=== PATIENT | female | born 1940 | race Caucasian/White ===

== ENCOUNTER 2018-01-14 18:05 | Inpatient (IN) ==
[2018-01-14] MEDS ORDERED: Naloxone 0.4 MG/ML INJ IVP PRN (21:56)
--- NOTE | 2018-01-14 22:13 | Internal Med History&Physical ---
<Smith Chow - Last Filed: 01/14/18 23:29> Date of Encounter: 01/14/18 Time of Encounter: 22:06 Internal Medicine - H&P: HPI Chief complaint: sob Admitted From: Hospital to Hospital Transfer Plans for Post Hospital Care: Home History of present illness: Ms. Danielle is a 77 year old female with history of COPD (on 3L o2 at home), CHF, recently diagnosed lung cancer presented to [place] emergency department for shortness of breath 3 days that has progressively worsened to the point she had conversational dyspnea. Yesterday patient went to her PCP who prescribed her prednisone and azithromycin with doxycycline however her shortness of breath continued to worsen. Patient reports her shortness of breath worsens with lying flat and improves with sitting up. She has history of chronic cough which has not worsened and reports some sputum production which is normal for her. At [facility] ED patient was given DuoNeb's which improved her symptoms slightly but she continued to use accessory muscles to breathe. She underwent chest x-ray which showed pleural effusions and pulmonary edema and patient was started on BiPAP. Due to concern of worsening respiratory status patient was transferred to [place]. She denies wheezing, fever, chills, congestion, rhinorrhea, chest pain, abdominal pain, nausea, vomiting, diarrhea. She reports diaphoresis, lower extremity edema bilaterally. Patient was recently diagnosed with right upper lobe non-small cell lung cancer which she was supposed to start radiation treatment today. She reports a couple episodes of pneumonia in the past few months and has been treated with IV as well as by mouth antibiotics. Past Med Surg Social Fam HX - Past Medical History Medical history: cardiomyopathy, CHF, COPD, hyperlipidemia, hypertension Additional medical history: LEFT BBB. SVT. THYROID NODULE. HOME O2. Pneumonia, CA NODULE RT LUNG Psychiatric history: anxiety - Past Surgical History Surgical History: appendectomy, cataract Additional surgical history: Heart Cath September 2017 - Social History Smoking Status: Former smoker Smokeless Tobacco Status: No Alcohol use: none Drug use: none - Family History Mother Hx Family Cardiac Disorders: Yes (ME) Father Hx Family Cardiac Disorders: Yes (ME) Internal Medicine - H&P: Meds Tiotropium [Spiriva] 2 puff IH DAILY 02/15/15 [History] Aspirin [Adult Low Dose Aspirin EC] 81 mg PO 3XW 07/21/15 [History] Acetylcysteine [Nac] 600 mg PO BID 08/18/17 [History] Atorvastatin [Lipitor] 20 mg PO DAILY 08/18/17 [History] Ascorbic Acid [Vitamin C] 500 mg PO DAILY #30 tablet 08/27/17 [Rx] Ferrous Sulfate 325 mg PO DAILY #30 tablet 08/27/17 [Rx] Losartan Potassium [Cozaar] 50 mg PO DAILY #30 tab 08/27/17 [Rx] Budesonide/Formoterol 160/4.5 [Symbicort 160/4.5] 2 puff IH BIDR 10/27/17 [ History] Ondansetron ODT [Zofran ODT] 4 mg SL Q4H PRN tab.rapdis 11/01/17 [Rx] Azithromycin [Zithromax] 250 mg PO QMWF 365 Days tablet 11/08/17 [Rx] Digoxin [Lanoxin] 0.125 mg PO DAILY #30 tablet 11/08/17 [Rx] Metoprolol XL (24 HR) Succ [Toprol Xl] 25 mg PO DAILY #30 tab.er.24h 11/08/17 [ Rx] Acetaminophen [Tylenol Arthritis] 650 mg PO Q6H PRN 12/01/17 [History] Albuterol Sulfate [Ventolin Hfa] 2 puff IH Q4-6H PRN 12/01/17 [History] Buspirone HCl [Buspar] 5 mg PO BID 12/01/17 [History] Cetirizine HCl [Zyrtec] 10 mg PO DAILY 12/01/17 [History] Ipratropium [place] 2 spray NS BID 12/01/17 [History] Oxygen 1 each .ROUTE AD 12/01/17 [History] ALPRAZolam [Xanax 0.5 MG Tablet] 0.25 mg PO TID PRN 01/14/18 [History] Albuterol Neb [Proventil Neb] 2.5 mg IH Q4-6H PRN 01/14/18 [History] Bumetanide [Bumex] 0.5 mg PO DAILY 01/14/18 [History] Cefdinir [Omnicef] 300 mg PO BID 01/14/18 [History] Docusate [Colace] 100 mg PO BID PRN 01/14/18 [History] Doxycycline 100 mg PO BID 01/14/18 [History] GuaiFENesin/Dextromethorphan [Robitussin/Dm] 10 ml PO Q6HR PRN 01/14/18 [History ] Mirtazapine [Remeron] 15 mg PO DAILY 01/14/18 [History] PredniSONE [Deltasone] 40 mg PO DAILY 01/14/18 [History] 3 Allergy/AdvReac Type Severity Reaction Status Date / Time codeine Allergy Rash Verified 12/23/17 14:41 levofloxacin [From Levaquin] Allergy Joint Pain Verified 12/23/17 14:41 All Systems PM: A 10-system review of systems was performed and is negative for pertinent findings except as documented above in the HPI. Review of systems: Constitutional: Denies fever, chills. Reports diaphoresis HEENT: Denies headache, trauma, blurry vision, eye discharge, ear pain, ear discharge neck pain, sore throat, rhinorrhea Heart: Denies chest pain palpitations, reports LE edema Lungs: Reports shortness of breath, cough, sputum production Abdomen: Denies abdominal pain nausea vomiting diarrhea. Reports constipation MSK: Denies back pain, falls, joint pain Kidney: Denies dysuria, hematuria Skin: Denies rash, ulcers Neuro: Denies numbness and tingling Psych: denies axniety, depression - Constitutional Vitals: Temp Pulse Resp BP Pulse Ox 97.9 F 73 18 138/80 95 01/14/18 20:12 01/14/18 20:12 01/14/18 20:12 01/14/18 20:12 01/14/18 20:12 Exam: General: pleasant, moderate distress HEENT: Head atraumatic, normocephalic, EOMI, PERRL, absent ear discharge or trauma, oral exam not done due to patient being dependent on bipap Neck: nontender to palpation, absent lymphadenopathy, Cardiovascualr: Regular rate and rhythm with no murmur, gallops or rubs, 2+ pedal edema pedal edema, radial pulses 2 out of 4 Lungs: Clear to auscultation bilaterally, diffuse mild expiratory wheezing Abdomen: Soft nontender, nondistended positive bowel sounds, absent hepatomegaly Skin: warm and dry, absent rash, absent open wounds, and nodules MSK: absent clubbing, cyanosis, joints without swelling Neuro: Cranial nerves II through XII intact, UE and LE sensation equal bilaterally, UE and LEstrength 5/5, alert oriented 3, Psych: good insight and judgement, - Assessment and plan (1) Acute respiratory failure with hypoxia and hypercapnia Current Visit: Yes Status: Acute Assessment and plan: 76-year-old female presented with shortness of breath 3 days has progressively worsening She was found to have BNP of 1600, chest x-ray showed evidence of pulmonary vascular congestion and developing pleural effusions She required BiPAP support Patient has a history of COPD, diastolic CHF and is on 3 L oxygen at home. Patient shortness of breath improved considerably after Lasix and BiPAP This is less likely to have COPD exacerbation as patient has not had worsening cough, sputum production. Less likely pneumonia as patient is afebrile, denies sick contacts, and there is no evidence of consolidation on chest x-ray or lung exam. Patient has leukocytosis likely secondary to PCP giving prednisone yesterday. Last echocardiogram shows LVEF of 30% with severe left ventricular systolic dysfunction without pulmonary hypertension or right heart failure on 08/25/2017 Plan: Continue BiPAP, Lasix 20 mg IVP. (2) Non-small cell lung cancer Current Visit: Yes Status: Acute Assessment and plan: right upper lobe NSCLC duet o hx of emphysema was not biopsied due to fear of pneumothorax biopsy of lymphnodes negative for malignancy Patient was supposed to undergo radiation treatment today however this was deferred due to her admission to the hospital Follow-up with oncology outpatient. Qualifiers: Laterality: right Qualified Code(s): C34.91 - Malignant neoplasm of unspecified part of right bronchus or lung (3) COPD (chronic obstructive pulmonary disease) Current Visit: Yes Status: Chronic Assessment and plan: not in exacerbation continue home symbicort spiriva and albuterol inhaler Qualifiers: COPD type: emphysema Emphysema type: unspecified Qualified Code(s): J43.9 - Emphysema, unspecified (4) Leukocytosis Current Visit: Yes Status: Acute Assessment and plan: 2nd to recent prednisone use no signs of infection if patient develops fever, worseing respiratory distress will need to be evaluated for infectious etiology Qualifiers: Leukocytosis type: unspecified Qualified Code(s): D72.829 - Elevated white blood cell count, unspecified (5) Acute on chronic systolic (congestive) heart failure Current Visit: Yes Status: Acute Assessment and plan: continue bipap, strict I/Os, fernandez in place lasix plan as above. - Time Spent With Patient Total time spent is greater than 50% in coordination of care (as documented) at patient's floor/unit and/or counseling patient: <Osito Trujillo - Last Filed: 01/15/18 01:59> Date of Encounter: 01/15/18 Time of Encounter: 00:40 - Constitutional Constitutional: no chills, no fever(s), no night sweats - EENT Eyes: no change in vision Ears: no ear pain Nose, mouth and throat: no nasal congestion, no sinus pressure, no sore throat - Cardiovascular Cardiovascular ROS IM: dyspnea, dyspnea on exertion, edema, orthopnea, no chest pain - Respiratory Respiratory: cough, dyspnea, wheezing, no hemoptysis, no chest congestion, no excessive phlegm production, no change in phlegm color - Gastrointestinal Gastrointestinal: no abdominal pain, no diarrhea, no hematemesis, no hematochezia, no melena, no vomiting - Genitourinary Genitourinary: no dysuria, no hematuria - Musculoskeletal Musculoskeletal ROS IM: no atrophy, no back pain - Integumentary Integumentary IM: no rash, no jaundice - Neurological Neurological ROS: no dizziness, no focal weakness, no frequent falls, no headache(s) - Psychiatric Psychiatric: no anxiety, no depression - Endocrine Endocrine IM: no polydipsia, no polyuria - Constitutional Vitals: Temp Pulse Resp BP Pulse Ox 98.2 F 102 16 130/85 98 01/15/18 00:36 01/15/18 00:36 01/15/18 00:36 01/15/18 00:36 01/15/18 00:36 General appearance: Present: cooperative, mild distress, A&O X 3 - Eye Eye exam: Present: PERRL. Absent: scleral icterus - ENT ENT exam: Present: mucous membranes dry, normal exam - Neck Neck exam general surgery: Present: supple. Absent: tenderness, thyromegaly - Respiratory Respiratory exam: Present: accessory muscle use, prolonged expiratory phase, respiratory distress (mild to moderate), rhonchi, wheezes, tachypnea. Absent: chest wall tenderness, rales - Cardiovascular Cardiovascular exam: Present: distant heart sounds, +S1, +S2. Absent: diastolic murmur, systolic murmur - GI/Abdominal GI/Abdominal exam: Present: normal bowel sounds, soft. Absent: hepatomegaly, splenomegaly, tenderness - Extremities Exam Extremities exam: Present: full ROM, normal capillary refill, warm, radial pulses palpable and symmetrical. Absent: calf tenderness, joint swelling, tenderness - Back Exam Back exam: Absent: CVA tenderness (L), CVA tenderness (R) - Neurological Exam Neurological exam: Present: alert, CN II-XII intact, oriented X3, no focal deficits - Psychiatric Psychiatric exam: Present: normal affect, normal mood - Skin Skin exam: Present: dry, intact, warm Internal Med - H&P Results - Diagnostic Studies Chest x-ray Status: image reviewed by me (bilateral small pleural effusions; vascular congestion) - Assessment and plan (1) Non-small cell lung cancer Current Visit: Yes Status: Acute Qualifiers: Laterality: right Qualified Code(s): C34.91 - Malignant neoplasm of unspecified part of right bronchus or lung (2) COPD (chronic obstructive pulmonary disease) Current Visit: Yes Status: Chronic Qualifiers: COPD type: emphysema Emphysema type: unspecified Qualified Code(s): J43.9 - Emphysema, unspecified (3) Acute respiratory failure with hypoxia and hypercapnia Current Visit: Yes Status: Acute (4) Leukocytosis Current Visit: Yes Status: Acute Qualifiers: Leukocytosis type: unspecified Qualified Code(s): D72.829 - Elevated white blood cell count, unspecified (5) Acute on chronic systolic (congestive) heart failure Current Visit: Yes Status: Acute - Time Spent With Patient Total time spent is greater than 50% in coordination of care (as documented) at patient's floor/unit and/or counseling patient: - Attending Attestation I discussed the patient [place], past medical history, review of systems, lab data , and exam findings with Dr. Chow. I then saw and examined patient independently as well. She feels better now than when she presented to ER. However, she still short of breath and struggling to breathe with some tachypnea , pursed lip breathing at times, and conversational dyspnea. He did improve with BiPAP, but is currently off. I recommend using it tonight and then when necessary during the daytime. I reviewed her x-ray and agree with the findings of CHF findings as well as hyperinflation from her chronic COPD. Her white blood cell count is elevated, but she was started on prednisone yesterday. She does not give any symptoms of infectious disease history and I agree withholding antibiotics at this time. She did have blood cultures drawn at [facility]. If she does not improve and/or declines, I would then recommend starting antibiotics at that time. However, presently, I agree with conservative treatment. She denies any chest pain, vomiting, or diarrhea. Appetite and fluid intake have been diminished,. Other than my comments above and noted exam findings, I agree with Dr. Chow's assessment and plan.
[2018-01-14] MEDS: ALPRAZolam 0.5 MG TABLET PO PRN (22:43)
[2018-01-14] MEDS: *HR* Acetylcysteine 20% 600 MG/3 ML ORAL SYRINGE PO SCH (22:47)
[2018-01-15 05:29] LABS: Basophils % 0.1 %; Hematocrit 36.7 % (35.3-44.9); Immature Granulocytes % 0.2 % (0-4); Lymphocytes # 0.4 K/mcL (0.6-4.6); Lymphocytes % 4.9 %; Mean Corpuscular Hemoglobin 26.8 pg (28.0-33.3); Mean Corpuscular Volume 89.3 fL (83.0-100.0); Mean Platelet Volume 11.5 fL (9.4-12.4); Monocytes # 0.7 K/mcL (0.0-1.3); Monocytes % 8.4 %; Neutrophils # 7.6 K/mcL (1.6-8.9); Platelet Count 285 K/mcL (140-400); Red Blood Count 4.11 M/mcL (3.82-4.97); Red Cell Distribution Width 14.9 % (11.5-14.5); Segmented Neutrophils % 86.4 %
[2018-01-15] MEDS: *HR* Heparin 5,000 UNIT/ML VIAL SQ SCH ×3 (05:51→22:03)
[2018-01-15 05:53] LABS: BUN/Creatinine Ratio 34 (6-26); Blood Urea Nitrogen 25 mg/dL (8-23); Calcium 8.5 mg/dL (8.6-10.3); Carbon Dioxide 31 mEq/L (23-29); Chloride 102 mEq/L (98-107); Glucose 172 mg/dL (70-105); Osmolality,Calculated 298 (280-300); Potassium 3.9 mEq/L (3.5-5.1); Sodium 140 mEq/L (136-145); eGFR For Non-African Americans > 60 (> 60)
[2018-01-15] MEDS: Budesonide/Formoterol 160/4.5 1 PUFF INH IH SCH ×2 (07:33→19:57)
[2018-01-15] MEDS: Tiotropium 18 MCG inhalation IH SCH (07:33)
[2018-01-15] MEDS: Albuterol 2.5 MG/3 ML NEBULIZER IH PRN ×4 (07:33→19:57)
--- NOTE | 2018-01-15 08:24 | Internal Med Progress Note ---
<Liam Levi - Last Filed: 01/15/18 11:09> Hospitalist Progress Note - Encounter Date of Encounter: 01/15/18 Time of Encounter: 09:35 - Exam Vitals: Temp Pulse Resp BP Pulse Ox 98.2 F 87 21 155/93 90 01/15/18 08:10 01/15/18 08:10 01/15/18 08:10 01/15/18 08:10 01/15/18 08:10 - Assessment and Plan (1) Non-small cell lung cancer Current Visit: Yes Status: Acute (2) COPD (chronic obstructive pulmonary disease) Current Visit: Yes Status: Chronic (3) Acute respiratory failure with hypoxia and hypercapnia Current Visit: Yes Status: Acute (4) Leukocytosis Current Visit: Yes Status: Acute (5) Acute on chronic systolic (congestive) heart failure Current Visit: Yes Status: Acute - Time Spent with Patient Total time spent is greater than 50% in coordination of care (as documented) at patient's floor/unit and/or counseling patient: Internal Medicine: Result - Labs CBC & Chem 7: 01/15/18 04:45 01/15/18 04:45 Labs: Short CBC 01/15/18 Range/Units 04:45 WBC 8.8 D (4.3-11.1) K/mcL Hgb 11.0 L D (11.5-15.4) g/dL Hct 36.7 (35.3-44.9) % Plt Count 285 (140-400) K/mcL Neutrophils # 7.6 (1.6-8.9) K/mcL BMP 01/15/18 04:45 Sodium 140 Potassium 3.9 Chloride 102 Carbon Dioxide 31 H BUN 25 H Creatinine 0.74 Glucose 172 H Calcium 8.5 L Consult Discharge Plan - Plan Referrals: Nahum Dukes MD [Primary Care Provider] - - Attending Attestation I saw evaluated and examined this patient and my medical decision-making was reviewed with the Resident Physician, Yessenia Asencio. I agree with the documented findings, disposition and treatment plan as described except to any changes set forth below. We independently had gicq-or-rvef contact with the patient. Patient continues to report shortness of breath and is using accessory muscles. We will continue bronchodilators, Lasix and O2 supplementation. Recent echocardiogram done showed EF of 30%. Heart rate elevated likely due to bronchodilator use. If persistently elevated, will increase beta griselda dosage. <[place],Lacey N - Last Filed: 01/15/18 15:02> Hospitalist Progress Note - Encounter Date of Encounter: 01/15/18 Time of Encounter: 08:23 - Subjective Interval History: Ms. Danielle is a 77-year old female with a history of COPD, CHF, and recently diagnosed lung cancer. She presented to outside ED yesterday for progressively worsening SOB to the point where she is experiencing conversational dyspnea. Per hospitalist H&P, she was evaluated by her PCP yesterday and prescribed prednizone, azithromycin, and doxycycline; however, she continued to worsen, resulting in her presentation to the ED. Imaging studies performed at the outside facility demonstrated pleural effusions and pulmonary edema. She was transferred to [facility] due to concern for worsening respiratory status. Since her admission here, she has been receiving scheduled and PRN nebulizer treatments and BiPAP with some improvement in symptoms. On exam today, she continues to have shortness of breath, though she does report some improvement. She denies any chest pain or cough. Nursing staff denies any significant overnight events. She denies any new complaints or concerns at this time. - Exam Vitals: Temp Pulse Resp BP Pulse Ox 98.2 F 87 21 155/93 90 01/15/18 08:10 01/15/18 08:10 01/15/18 08:10 01/15/18 08:10 01/15/18 08:10 Exam: * General: Ill-appearing elderly female. She appears to be in mild distress secondary to dyspnea. She answers questions appropriately. * HEENT: Atraumatic and normocephalic. Nasal canula in place. * Cardiovascular: Regular rate and rhythm. S1 and S2 present. No murmurs, gallops, or rubs. * Respiratory: Expiratory wheeze present bilaterally. Patient is short of breath with minimal conversation. Accessory muscle use noted during respiration. * Abdomen: Soft and nontender. * Extremities: No clubbing or cyanosis. Minimal bilateral LE edema present. - Assessment and Plan (1) Acute respiratory failure with hypoxia and hypercapnia Current Visit: Yes Status: Acute Assessment and Plan: Patient presented with worsening SOB x 3days. She uses 5L supplemental oxygen at home, with an increased requirement of 8L when walking. She is currently receiving scheduled and PRN nebulizer treatments, with minimal improvement in symptoms. She appear short of breath very quickly after starting to converse. Plan to continue IV lasix and close record of I/Os and daily weights. Initial imaging demonstrated pleural effusions and pulmonary edema - will consider thoracentesis if patient does not improve or if effusion worsens. (2) Non-small cell lung cancer Current Visit: Yes Status: Acute Assessment and Plan: Patient was recently diagnosed with NSCLC, and was scheduled to undergo her first radiation treatment yesterday. Will recommend prompt followup with oncologist after discharge. (3) Acute on chronic systolic (congestive) heart failure Current Visit: Yes Status: Acute Assessment and Plan: Patient has a history of CHF and takes bumex at home. She is currently on furosemide 20mg IVP BID. Rodriguez catheter is in place. Plan for strict I/Os and daily weights. Will consider fluid restriction diet if patient does not demonstrate improvement overnight. DVT Prophylaxis: Heparin 5000units SQ Q8H. - Time Spent with Patient Total time spent is greater than 50% in coordination of care (as documented) at patient's floor/unit and/or counseling patient: Internal Medicine: Result - Labs CBC & Chem 7: 01/15/18 04:45 01/15/18 04:45 Labs: Short CBC 01/15/18 Range/Units 04:45 WBC 8.8 D (4.3-11.1) K/mcL Hgb 11.0 L D (11.5-15.4) g/dL Hct 36.7 (35.3-44.9) % Plt Count 285 (140-400) K/mcL Neutrophils # 7.6 (1.6-8.9) K/mcL BMP 01/15/18 04:45 Sodium 140 Potassium 3.9 Chloride 102 Carbon Dioxide 31 H BUN 25 H Creatinine 0.74 Glucose 172 H Calcium 8.5 L <GurmeetLiam - Last Filed: 01/15/18 11:09> (1) Non-small cell lung cancer Qualifiers: Laterality: right Qualified Code(s): C34.91 - Malignant neoplasm of unspecified part of right bronchus or lung (2) COPD (chronic obstructive pulmonary disease) Qualifiers: COPD type: emphysema Emphysema type: unspecified Qualified Code(s): J43.9 - Emphysema, unspecified (4) Leukocytosis Qualifiers: Leukocytosis type: unspecified Qualified Code(s): D72.829 - Elevated white blood cell count, unspecified <Yessenia Asencio - Last Filed: 01/15/18 15:02> (2) Non-small cell lung cancer Qualifiers: Laterality: right Qualified Code(s): C34.91 - Malignant neoplasm of unspecified part of right bronchus or lung
[2018-01-15] MEDS: Furosemide 20 MG/2 ML VIAL IVP SCH ×2 (08:25→16:46)
[2018-01-15] MEDS: Metoprolol XL (24 HR) Succ 25 MG TAB.ER.24H PO SCH (08:25)
[2018-01-15] MEDS: Mirtazapine 15 MG TABLET PO SCH (08:26)
[2018-01-15] MEDS: *HR* Digoxin 0.125 MG TABLET PO SCH (08:26)
[2018-01-15] MEDS: ALPRAZolam 0.5 MG TABLET PO PRN ×3 (08:34→22:04)
[2018-01-15] MEDS: *HR* Acetylcysteine 20% 600 MG/3 ML ORAL SYRINGE PO SCH ×2 (08:39→22:03)
[2018-01-15] MEDS: Acetaminophen 325 MG TABLET PO PRN ×2 (11:43→22:03)
[2018-01-15] MEDS ORDERED: Ondansetron ODT 4 MG TAB.RAPDIS SL PRN (14:56)
[2018-01-15] MEDS ORDERED: NON-FORMULARY MEDICATION 1 EACH EACH (Acetaminophen [Tylenol Arthritis] 650 MG) PO PRN (14:56)
[2018-01-15] MEDS: Nicotine 14 MG PATCH.TD24 TD SCH (22:39)
[2018-01-16] MEDS: Albuterol 2.5 MG/3 ML NEBULIZER IH PRN ×4 (04:04→23:02)
[2018-01-16] MEDS: *HR* Heparin 5,000 UNIT/ML VIAL SQ SCH ×3 (06:27→21:30)
--- NOTE | 2018-01-16 08:08 | Internal Med Progress Note ---
<Yessenia Asencio N - Last Filed: 01/16/18 12:58> Hospitalist Progress Note - Encounter Date of Encounter: 01/16/18 Time of Encounter: 08:08 - Subjective Interval History: Ms. Danielle is a 77-year old female with a history of COPD, CHF, and recently diagnosed lung cancer. She presented to outside ED yesterday for progressively worsening SOB to the point where she is experiencing conversational dyspnea. Per hospitalist H&P, she was evaluated by her PCP yesterday and prescribed prednisone, azithromycin, and doxycycline; however, she continued to worsen, resulting in her presentation to the ED. Imaging studies performed at the outside facility demonstrated pleural effusions and pulmonary edema. She was transferred to [place] due to concern for worsening respiratory status. Since her admission here, she has been receiving scheduled and PRN nebulizer treatments and BiPAP with some improvement in symptoms. On exam today, she continues to have shortness of breath, though she does report some improvement. She denies any chest pain or cough. Nursing staff denies any significant overnight events. She denies any new complaints or concerns at this time. 01/16 - Patient states that she feels she is breathing more easily today. She states that she feels the BiPAP is helping, though she does not like the way it feels. Her son, who is present at the bedside, requests an incentive spirometer , stating that the patient uses one at home. He inquires about PT/OT services, and states that he would like to have her set up for home BiPAP, as it seems to help her breathing. She denies any new complaints or concerns at this time, and nursing staff reports no acute overnight events. - Exam Vitals: Temp Pulse Resp BP Pulse Ox 97.8 F 71 23 128/60 94 01/16/18 03:53 01/16/18 03:53 01/16/18 04:04 01/16/18 03:53 01/16/18 04:04 Exam: * General: Ill-appearing elderly female. She appears to be in no acute distress. She answers questions appropriately. * HEENT: Atraumatic and normocephalic. Nasal canula in place. * Cardiovascular: Regular rate and rhythm. S1 and S2 present. No murmurs, gallops, or rubs. * Respiratory: Expiratory wheeze present bilaterally. Patient appears dyspneic, but is improved from yesterday. Accessory muscle use noted during respiration. * Abdomen: Soft and nontender. * Extremities: No clubbing or cyanosis. Minimal bilateral LE edema present. - Assessment and Plan (1) Acute respiratory failure with hypoxia and hypercapnia Current Visit: Yes Status: Acute Assessment and Plan: Patient presented with worsening SOB x 3days. She uses 5L supplemental oxygen at home, with an increased requirement of 8L when walking. She is currently receiving scheduled and PRN nebulizer treatments, with minimal improvement in symptoms. She appear short of breath very quickly after starting to converse. Plan to continue IV lasix and close record of I/Os and daily weights. Initial imaging demonstrated pleural effusions and pulmonary edema - will consider thoracentesis if patient does not improve or if effusion worsens. 01/16 - Patient reports symptomatic improvement in respiratory status, though she is slightly dyspneic while speaking. She reports that BiPAP helped her breathing, and is interested in having one at home. ABG performed this afternoon showed pH 7.39, pCO2 72, pO2 66, and HCO3 43. Plan for BiPAP qualification study tonight. Will continue with lasix and nebulizer treatments as planned. (2) Non-small cell lung cancer Current Visit: Yes Status: Acute Assessment and Plan: Patient was recently diagnosed with NSCLC, and was scheduled to undergo her first radiation treatment yesterday. Will recommend prompt followup with oncologist after discharge. 01/16 - Patient reports that she is supposed to undergo radiation therapy tomorrow and requests that we reach out the her oncologist regarding her current hospitalization. Plan to call their office tomorrow per her request. (3) Acute on chronic systolic (congestive) heart failure Current Visit: Yes Status: Acute Assessment and Plan: Patient has a history of CHF and takes bumex at home. She is currently on furosemide 20mg IVP BID. Rodriguez catheter is in place. Plan for strict I/Os and daily weights. Will consider fluid restriction diet if patient does not demonstrate improvement overnight. 01/16 - Patient I/O for yesterday were 400/2900 (-2500mL). Clinically, the patient appears to be improving. Will continue lasix diuresis and strict I/Os. DVT Prophylaxis: Heparin 5000units SQ Q8H. - Time Spent with Patient Total time spent is greater than 50% in coordination of care (as documented) at patient's floor/unit and/or counseling patient: Internal Medicine: Result - Labs CBC & Chem 7: 01/16/18 07:07 01/16/18 07:07 Consult Discharge Plan - Plan Referrals: Nahum Dukes MD [Primary Care Provider] - <GenolilaLiam - Last Filed: 01/16/18 14:37> Hospitalist Progress Note - Encounter Date of Encounter: 01/16/18 Time of Encounter: 10:10 - Exam Vitals: Temp Pulse Resp BP Pulse Ox 98.4 F 74 19 163/52 94 01/16/18 12:54 01/16/18 12:54 01/16/18 12:54 01/16/18 12:54 01/16/18 12:54 - Assessment and Plan (1) Non-small cell lung cancer Current Visit: Yes Status: Acute (2) Acute respiratory failure with hypoxia and hypercapnia Current Visit: Yes Status: Acute (3) Acute on chronic systolic (congestive) heart failure Current Visit: Yes Status: Acute - Time Spent with Patient Total time spent is greater than 50% in coordination of care (as documented) at patient's floor/unit and/or counseling patient: Internal Medicine: Result - Labs CBC & Chem 7: 01/16/18 07:07 01/16/18 07:07 Labs: Short CBC 01/16/18 Range/Units 07:07 WBC 10.2 (4.3-11.1) K/mcL Hgb 12.0 (11.5-15.4) g/dL Hct 41.1 (35.3-44.9) % Plt Count 259 (140-400) K/mcL Neutrophils # 7.2 (1.6-8.9) K/mcL BMP 01/16/18 07:07 Sodium 145 Potassium 3.4 L Chloride 101 Carbon Dioxide 39 H BUN 26 H Creatinine 0.74 Glucose 88 Calcium 8.6 - ABG Interpretation ABG results: ABG ABG pH 7.39 pH Units (7.32-7.45) 01/16/18 11:46 ABG pCO2 72 mmHg (35-45) H* 01/16/18 11:46 ABG pO2 66 mmHg (85-104) L 01/16/18 11:46 ABG O2 Saturation 91 % (95-98) L 01/16/18 11:46 - Attending Attestation I saw evaluated and examined this patient and my medical decision-making was reviewed with the Resident Physician, Yessenia Asencio. I agree with the documented findings, disposition and treatment plan as described except to any changes set forth below. We independently had [id number] contact with the patient. Patient is feeling much better today. She is breathing better and her lower extremities on the swollen. She denies any chest pain or palpitations. No nausea or vomiting. General: Patient is alert, no acute distress, oriented x 3 Respiratory: Good respiratory effort. Improved air entry bilaterally. Cardiovascular: Regular rate and rhythm. s1 and s2 normal. Ejection systolic murmur No clicks, rubs, gallops. Trace pedal edema Abdomen: Abdomen is soft, nontender. Bowel sounds are present Musculoskeletal: Spontaneously moving all extremities Skin: warm, dry, intact. Neuro: Alert oriented x 3 normal cranial nerves, no focal deficits Acute on chronic respiratory failure with hypoxia and hypercapnia: Continue O2 supplementation. Patient responding well to BiPAP. Will evaluate for home BiPAP use. Acute on chronic systolic congestive heart failure: Has responded well to IV Lasix. We will continue for another day and transitioned to oral Lasix tomorrow. Non-small cell lung cancer: Follow up with oncology after discharge. Patient is scheduled for radiation treatment tomorrow which she will be rescheduled. DVT prophylaxis with subcutaneous heparin. COPD: Continue bronchodilators. O2 supplementation. <Yessenia Asencio N - Last Filed: 01/16/18 12:58> (2) Non-small cell lung cancer Qualifiers: Laterality: right Qualified Code(s): C34.91 - Malignant neoplasm of unspecified part of right bronchus or lung <Liam Levi - Last Filed: 01/16/18 14:37> (1) Non-small cell lung cancer Qualifiers: Laterality: right Qualified Code(s): C34.91 - Malignant neoplasm of unspecified part of right bronchus or lung
[2018-01-16] MEDS: Budesonide/Formoterol 160/4.5 1 PUFF INH IH SCH ×2 (08:10→23:01)
[2018-01-16] MEDS: Tiotropium 18 MCG inhalation IH SCH (08:11)
[2018-01-16 08:12] LABS: BUN/Creatinine Ratio 35 (6-26); Blood Urea Nitrogen 26 mg/dL (8-23); Calcium 8.6 mg/dL (8.6-10.3); Carbon Dioxide 39 mEq/L (23-29); Chloride 101 mEq/L (98-107); Glucose 88 mg/dL (70-105); Osmolality,Calculated 304 (280-300); Potassium 3.4 mEq/L (3.5-5.1); Sodium 145 mEq/L (136-145); eGFR For Non-African Americans > 60 (> 60)
[2018-01-16] MEDS: Metoprolol XL (24 HR) Succ 25 MG TAB.ER.24H PO SCH (08:16)
[2018-01-16] MEDS: Ascorbic Acid 500 MG TABLET PO SCH (08:16)
[2018-01-16] MEDS: *HR* Digoxin 0.125 MG TABLET PO SCH (08:17)
[2018-01-16] MEDS: Mirtazapine 15 MG TABLET PO SCH (08:17)
[2018-01-16] MEDS: Furosemide 20 MG/2 ML VIAL IVP SCH ×2 (08:17→18:13)
[2018-01-16 08:18] LABS: Basophils % 0.4 %; Eosinophils # 0.1 K/mcL (0.0-0.6); Eosinophils % 1.1 %; Hematocrit 41.1 % (35.3-44.9); Immature Granulocytes % 0.4 % (0-4); Lymphocytes # 1.8 K/mcL (0.6-4.6); Lymphocytes % 17.3 %; Mean Corpuscular HGB Conc 29.2 g/dL (31.6-35.5); Mean Corpuscular Volume 92.4 fL (83.0-100.0); Mean Platelet Volume 11.4 fL (9.4-12.4); Monocytes % 9.6 %; Neutrophils # 7.2 K/mcL (1.6-8.9); Platelet Count 259 K/mcL (140-400); Red Blood Count 4.45 M/mcL (3.82-4.97); Red Cell Distribution Width 14.9 % (11.5-14.5); Segmented Neutrophils % 71.2 %
[2018-01-16] MEDS: *HR* Acetylcysteine 20% 600 MG/3 ML ORAL SYRINGE PO SCH ×2 (08:22→21:30)
[2018-01-16] MEDS: ALPRAZolam 0.5 MG TABLET PO PRN ×3 (08:22→21:30)
[2018-01-16 11:53] LABS: ABG Base Excess 15 mEq/L (-2 to 3); ABG HCO3 43 mEq/L (21-27); ABG Oxygen Saturation 91 % (95-98); ABG PCO2 72 mmHg (35-45); ABG PH 7.39 pH Units (7.32-7.45); ABG PO2 66 mmHg (85-104); ABG TCO2 45 mEq/L (20-26)
[2018-01-16] MEDS ORDERED: Bisacodyl 10 MG RECTAL SUPPOSITORY RC PRN (20:29)
[2018-01-16] MEDS: Acetaminophen 325 MG TABLET PO PRN (21:30)
[2018-01-16] MEDS: Nicotine 14 MG PATCH.TD24 TD SCH (21:30)
[2018-01-17] MEDS: *HR* Heparin 5,000 UNIT/ML VIAL SQ SCH ×3 (05:48→21:53)
[2018-01-17 05:58] LABS: Bilirubin,Urine Negative (Negative); Blood,Urine Large (Negative); Clarity,Urine Turbid (Clear); Color,Urine Yellow (Yellow); Glucose,Urine (UA) Normal (Normal); Ketones,Urine Negative (Negative); Leukocyte Esterase,Urine Large (Negative); Nitrite,Urine Negative (Negative); Protein,Urine 100 mg/dL (Neg-Trace); Specific Gravity,Urine 1.019 (1.010-1.025); Urobilinogen,Urine Normal (Normal)
[2018-01-17 06:02] LABS: Bacteria,Urine Few per hpf (None-Few); RBC,Urine 15-30 per hpf (0-3); Squamous Epithelial Cell,Urine Many per lpf (None-Few); WBC,Urine TNTC per hpf (0-3)
[2018-01-17 06:16] LABS: Basophils % 0.4 %; Eosinophils # 0.3 K/mcL (0.0-0.6); Eosinophils % 2.5 %; Hematocrit 40.5 % (35.3-44.9); Hemoglobin 11.8 g/dL (11.5-15.4); Immature Granulocytes % 0.3 % (0-4); Lymphocytes # 1.9 K/mcL (0.6-4.6); Lymphocytes % 17.4 %; Mean Corpuscular HGB Conc 29.1 g/dL (31.6-35.5); Mean Corpuscular Hemoglobin 26.4 pg (28.0-33.3); Mean Corpuscular Volume 90.6 fL (83.0-100.0); Mean Platelet Volume 11.3 fL (9.4-12.4); Monocytes # 0.9 K/mcL (0.0-1.3); Monocytes % 8.2 %; Neutrophils # 7.6 K/mcL (1.6-8.9); Platelet Count 281 K/mcL (140-400); Red Blood Count 4.47 M/mcL (3.82-4.97); Red Cell Distribution Width 14.9 % (11.5-14.5); Segmented Neutrophils % 71.2 %
[2018-01-17 06:23] LABS: Hyaline Casts,Urine None Seen per lpf (None-Few)
[2018-01-17 06:44] LABS: BUN/Creatinine Ratio 30 (6-26); Blood Urea Nitrogen 20 mg/dL (8-23); Calcium 8.9 mg/dL (8.6-10.3); Carbon Dioxide 41 mEq/L (23-29); Chloride 98 mEq/L (98-107); Glucose 94 mg/dL (70-105); Osmolality,Calculated 298 (280-300); Potassium 3.7 mEq/L (3.5-5.1); Sodium 143 mEq/L (136-145); eGFR For Non-African Americans > 60 (> 60)
[2018-01-17] MEDS: Budesonide/Formoterol 160/4.5 1 PUFF INH IH SCH ×2 (07:34→22:16)
[2018-01-17] MEDS: Tiotropium 18 MCG inhalation IH SCH (07:34)
[2018-01-17] MEDS: Albuterol 2.5 MG/3 ML NEBULIZER IH PRN ×2 (07:35→16:07)
--- NOTE | 2018-01-17 08:25 | Internal Med Progress Note ---
<Liam Levi - Last Filed: 01/17/18 14:52> Hospitalist Progress Note - Encounter Date of Encounter: 01/17/18 Time of Encounter: 09:30 - Exam Vitals: Temp Pulse Resp BP Pulse Ox 98.3 F 76 18 120/80 95 01/17/18 11:14 01/17/18 11:14 01/17/18 11:14 01/17/18 11:14 01/17/18 11:14 - Assessment and Plan (1) Non-small cell lung cancer Current Visit: Yes Status: Acute (2) Acute respiratory failure with hypoxia and hypercapnia Current Visit: Yes Status: Acute (3) Acute on chronic systolic (congestive) heart failure Current Visit: Yes Status: Acute - Time Spent with Patient Total time spent is greater than 50% in coordination of care (as documented) at patient's floor/unit and/or counseling patient: Internal Medicine: Result - Labs CBC & Chem 7: 01/17/18 05:46 01/17/18 05:46 Labs: Short CBC 01/17/18 Range/Units 05:46 WBC 10.6 (4.3-11.1) K/mcL Hgb 11.8 (11.5-15.4) g/dL Hct 40.5 (35.3-44.9) % Plt Count 281 (140-400) K/mcL Neutrophils # 7.6 (1.6-8.9) K/mcL BMP 01/17/18 05:46 Sodium 143 Potassium 3.7 Chloride 98 Carbon Dioxide 41 H* BUN 20 Creatinine 0.66 Glucose 94 Calcium 8.9 Urine 01/17/18 Range/Units 05:43 Urine Color Yellow (Yellow) Urine Clarity Turbid A (Clear) Urine pH 6.0 (5.0-8.0) pH Units Ur Specific [place] 1.019 (1.010-1.025) Urine Protein 100 H (Neg-Trace) mg/dL Urine Glucose (UA) Normal (Normal) mg/dL - ABG Interpretation ABG results: ABG ABG pH 7.39 pH Units (7.32-7.45) 01/16/18 11:46 ABG pCO2 72 mmHg (35-45) H* 01/16/18 11:46 ABG pO2 66 mmHg (85-104) L 01/16/18 11:46 ABG O2 Saturation 91 % (95-98) L 01/16/18 11:46 Consult Discharge Plan - Plan Referrals: Nahum Dukes MD [Primary Care Provider] - - Attending Attestation I saw evaluated and examined this patient and my medical decision-making was reviewed with the Resident Physician, Yessenia Asencio. I agree with the documented findings, disposition and treatment plan as described except to any changes set forth below. We independently had [id number] contact with the patient. Patient continues to improve. Her shortness of breath has improved but she just worked with physical therapy and is dyspneic at this time. Is still using accessory muscles. She did qualify for BiPAP based on evaluation overnight. General: Patient is alert, mild distress, oriented x 3 Respiratory: Good respiratory effort. Improved air entry bilaterally. Bilateral wheezing audible Cardiovascular: Regular rate and rhythm. s1 and s2 normal. Ejection systolic murmur No clicks, rubs, gallops. Trace pedal edema Abdomen: Abdomen is soft, nontender. Bowel sounds are present Musculoskeletal: Spontaneously moving all extremities Neuro: Alert oriented x 3 normal cranial nerves, no focal deficits Acute on chronic respiratory failure with hypoxia and hypercapnia: Continue O2 supplementation. Patient qualified for BiPAP. We will arrange for home BiPAP use. Acute on chronic systolic congestive heart failure: Has responded to Lasix. Is developing complement of contraction alkalosis. We will transition to oral Bumex. We will continue monitoring in the hospital overnight. If patient continues to clinically improve, we will plan on discharge tomorrow. Non-small cell lung cancer: Follow up with oncology after discharge. We will need to reschedule and radiation treatment. DVT prophylaxis with subcutaneous heparin. COPD: Continue bronchodilators. O2 supplementation. BiPAP use during sleep and while lying down. <Yessenia Asencio N - Last Filed: 01/17/18 16:00> Hospitalist Progress Note - Encounter Date of Encounter: 01/17/18 Time of Encounter: 08:25 - Subjective Interval History: Ms. Danielle is a 77-year old female with a history of COPD, CHF, and recently diagnosed lung cancer. She presented to outside ED yesterday for progressively worsening SOB to the point where she is experiencing conversational dyspnea. Per hospitalist H&P, she was evaluated by her PCP yesterday and prescribed prednisone, azithromycin, and doxycycline; however, she continued to worsen, resulting in her presentation to the ED. Imaging studies performed at the outside facility demonstrated pleural effusions and pulmonary edema. She was transferred to [place] due to concern for worsening respiratory status. Since her admission here, she has been receiving scheduled and PRN nebulizer treatments and BiPAP with some improvement in symptoms. On exam today, she continues to have shortness of breath, though she does report some improvement. She denies any chest pain or cough. Nursing staff denies any significant overnight events. She denies any new complaints or concerns at this time. 01/16 - Patient states that she feels she is breathing more easily today. She states that she feels the BiPAP is helping, though she does not like the way it feels. Her son, who is present at the bedside, requests an incentive spirometer , stating that the patient uses one at home. He inquires about PT/OT services, and states that he would like to have her set up for home BiPAP, as it seems to help her breathing. She denies any new complaints or concerns at this time, and nursing staff reports no acute overnight events. 01/17 - Patient appears slightly dyspneic on exam today. She reports that she was recently evaluated by PT/OT, which led to her SOB. She reportedly qualified for home BiPAP with her overnight study. She reports urinary frequency and urgency that began last night. She states that she feels like she has a UTI. She reports no other complains or concerns at this time. - Exam Vitals: Temp Pulse Resp BP Pulse Ox 98.2 F 88 18 144/85 95 01/17/18 07:26 01/17/18 07:26 01/17/18 07:26 01/17/18 07:26 01/17/18 07:26 Exam: * General: Ill-appearing elderly female. She appears to be in no acute distress. She answers questions appropriately. * HEENT: Atraumatic and normocephalic. Nasal canula in place. * Cardiovascular: Regular rate and rhythm. S1 and S2 present. No murmurs, gallops, or rubs. * Respiratory: CTA bilaterally. Patient appears dyspneic, but is improved from yesterday. Accessory muscle use noted during respiration. * Abdomen: Soft and nontender. * Extremities: No clubbing or cyanosis. Minimal bilateral LE edema present. - Assessment and Plan (1) UTI (urinary tract infection) Current Visit: Yes Status: Acute Assessment and Plan: Patient complains of urinary frequency and urgency that began last night. Urinarlysis was significatn for proteinuria, large blood, large leukocyte esterdase, and WBC TNTC. Urine culture is pending. Plan for macrobid 100mg BID x3 days. (2) Acute respiratory failure with hypoxia and hypercapnia Current Visit: Yes Status: Acute Assessment and Plan: Patient presented with worsening SOB x 3days. She uses 5L supplemental oxygen at home, with an increased requirement of 8L when walking. She is currently receiving scheduled and PRN nebulizer treatments, with minimal improvement in symptoms. She appear short of breath very quickly after starting to converse. Plan to continue IV lasix and close record of I/Os and daily weights. Initial imaging demonstrated pleural effusions and pulmonary edema - will consider thoracentesis if patient does not improve or if effusion worsens. 01/16 - Patient reports symptomatic improvement in respiratory status, though she is slightly dyspneic while speaking. She reports that BiPAP helped her breathing, and is interested in having one at home. ABG performed this afternoon showed pH 7.39, pCO2 72, pO2 66, and HCO3 43. Plan for BiPAP qualification study tonight. Will continue with lasix and nebulizer treatments as planned. 01/17 - Patient underwent BiPAP qualification study yesterday. We will set up for home BiPAP therapy. Her respiratory status is improving. Will continue bumex 0.5mg BID and nebulizer treatments. (3) Non-small cell lung cancer Current Visit: Yes Status: Acute Assessment and Plan: Patient was recently diagnosed with NSCLC, and was scheduled to undergo her first radiation treatment yesterday. Will recommend prompt followup with oncologist after discharge. 01/16 - Patient reports that she is supposed to undergo radiation therapy tomorrow and requests that we reach out the her oncologist regarding her current hospitalization. Plan to call their office tomorrow per her request. 01/17 - Will notify cancer center of need to reschedule radiation treatment. Patient instructed to follow-up with oncology after discharge for further management of this problem. (4) Acute on chronic systolic (congestive) heart failure Current Visit: Yes Status: Acute Assessment and Plan: Patient has a history of CHF and takes bumex at home. She is currently on furosemide 20mg IVP BID. Rodriguez catheter is in place. Plan for strict I/Os and daily weights. Will consider fluid restriction diet if patient does not demonstrate improvement overnight. 01/16 - Patient I/O for yesterday were 400/2900 (-2500mL). Clinically, the patient appears to be improving. Will continue lasix diuresis and strict I/Os. 01/17 - 24-hour I/O = 540/1500. Will continue diuresis. Patient is improved clinically and respirations appear to be more comfortable. Plan for likely discharge tomorrow. DVT Prophylaxis: Heparin 5000units SQ Q8H. - Time Spent with Patient Total time spent is greater than 50% in coordination of care (as documented) at patient's floor/unit and/or counseling patient: Internal Medicine: Result - Labs CBC & Chem 7: 01/17/18 05:46 01/17/18 05:46 Labs: Short CBC 01/17/18 Range/Units 05:46 WBC 10.6 (4.3-11.1) K/mcL Hgb 11.8 (11.5-15.4) g/dL Hct 40.5 (35.3-44.9) % Plt Count 281 (140-400) K/mcL Neutrophils # 7.6 (1.6-8.9) K/mcL BMP 01/17/18 05:46 Sodium 143 Potassium 3.7 Chloride 98 Carbon Dioxide 41 H* BUN 20 Creatinine 0.66 Glucose 94 Calcium 8.9 Urine 01/17/18 Range/Units 05:43 Urine Color Yellow (Yellow) Urine Clarity Turbid A (Clear) Urine pH 6.0 (5.0-8.0) pH Units Ur Specific [place] 1.019 (1.010-1.025) Urine Protein 100 H (Neg-Trace) mg/dL Urine Glucose (UA) Normal (Normal) mg/dL - ABG Interpretation ABG results: ABG ABG pH 7.39 pH Units (7.32-7.45) 01/16/18 11:46 ABG pCO2 72 mmHg (35-45) H* 01/16/18 11:46 ABG pO2 66 mmHg (85-104) L 01/16/18 11:46 ABG O2 Saturation 91 % (95-98) L 01/16/18 11:46 <Liam Levi - Last Filed: 01/17/18 14:52> (1) Non-small cell lung cancer Qualifiers: Laterality: right Qualified Code(s): C34.91 - Malignant neoplasm of unspecified part of right bronchus or lung <Yessenia Asencio - Last Filed: 01/17/18 16:00> (3) Non-small cell lung cancer Qualifiers: Laterality: right Qualified Code(s): C34.91 - Malignant neoplasm of unspecified part of right bronchus or lung
[2018-01-17] MEDS: Bumetanide 1 MG TABLET PO SCH ×2 (09:31→16:31)
[2018-01-17] MEDS: *HR* Acetylcysteine 20% 600 MG/3 ML ORAL SYRINGE PO SCH ×2 (09:31→21:52)
[2018-01-17] MEDS: Mirtazapine 15 MG TABLET PO SCH (09:32)
[2018-01-17] MEDS: Ascorbic Acid 500 MG TABLET PO SCH (09:32)
[2018-01-17] MEDS: Aspirin Enteric Coated 81 MG Tablet PO SCH (09:32)
[2018-01-17] MEDS: Metoprolol XL (24 HR) Succ 25 MG TAB.ER.24H PO SCH (09:32)
[2018-01-17] MEDS: *HR* Digoxin 0.125 MG TABLET PO SCH (09:32)
[2018-01-17] MEDS: ALPRAZolam 0.5 MG TABLET PO PRN ×2 (09:36→16:31)
[2018-01-17] MEDS: Acetylcysteine 10% 2 ML INHSOL IH SCH ×3 (12:31→16:07)
[2018-01-17] MEDS: Nitrofurantoin (BID) 100 MG CAPSULE PO SCH (16:31)
[2018-01-17] MEDS: Acetaminophen 325 MG TABLET PO PRN (16:58)
[2018-01-17] MEDS: Nicotine 14 MG PATCH.TD24 TD SCH (21:51)
[2018-01-18 04:38] LABS: Basophils % 0.3 %; Eosinophils # 0.4 K/mcL (0.0-0.6); Eosinophils % 4.1 %; Hematocrit 41.4 % (35.3-44.9); Hemoglobin 12.2 g/dL (11.5-15.4); Immature Granulocytes % 0.2 % (0-4); Lymphocytes # 1.8 K/mcL (0.6-4.6); Mean Corpuscular HGB Conc 29.5 g/dL (31.6-35.5); Mean Corpuscular Hemoglobin 26.9 pg (28.0-33.3); Mean Corpuscular Volume 91.4 fL (83.0-100.0); Mean Platelet Volume 11.4 fL (9.4-12.4); Monocytes # 0.7 K/mcL (0.0-1.3); Monocytes % 7.9 %; Neutrophils # 5.8 K/mcL (1.6-8.9); Platelet Count 252 K/mcL (140-400); Red Blood Count 4.53 M/mcL (3.82-4.97); Red Cell Distribution Width 14.6 % (11.5-14.5); Segmented Neutrophils % 66.5 %
[2018-01-18 04:54] LABS: BUN/Creatinine Ratio 22 (6-26); Blood Urea Nitrogen 14 mg/dL (8-23); Carbon Dioxide 37 mEq/L (23-29); Chloride 98 mEq/L (98-107); Glucose 99 mg/dL (70-105); Osmolality,Calculated 293 (280-300); Sodium 141 mEq/L (136-145); eGFR For Non-African Americans > 60 (> 60)
[2018-01-18] MEDS: *HR* Heparin 5,000 UNIT/ML VIAL SQ SCH ×3 (05:53→21:56)
[2018-01-18] MEDS: Budesonide/Formoterol 160/4.5 1 PUFF INH IH SCH ×2 (07:20→19:55)
[2018-01-18] MEDS: Albuterol 2.5 MG/3 ML NEBULIZER IH PRN ×4 (07:21→19:55)
[2018-01-18] MEDS: Tiotropium 18 MCG inhalation IH SCH (07:21)
--- NOTE | 2018-01-18 07:34 | Discharge Summary ---
<Geovani Lyles - Last Filed: 01/19/18 17:22> Orders not resulted at time of discharge: Pending orders 01/20/18 04:00 Basic Metabolic Panel AM 0400 Complete Blood Count [HEME] AM 0400 Date of Encounter: 01/19/18 - Discharge Diagnosis (1) Acute exacerbation of chronic obstructive airways disease Priority: Secondary Status: Resolved (2) Non-small cell lung cancer Priority: Secondary Status: Chronic Qualifiers: Laterality: right Qualified Code(s): C34.91 - Malignant neoplasm of unspecified part of right bronchus or lung (3) Acute respiratory failure with hypoxia and hypercapnia Priority: Primary Status: Resolved (4) Acute on chronic systolic (congestive) heart failure Priority: Secondary Status: Resolved (5) UTI (urinary tract infection) Priority: Secondary Status: Resolved Qualifiers: Urinary tract infection type: acute cystitis Hematuria presence: with hematuria Qualified Code(s): N30.01 - Acute cystitis with hematuria (6) Hypertension Priority: Secondary Status: Chronic Qualifiers: Hypertension type: essential hypertension Qualified Code(s): I10 - Essential (primary) hypertension (7) Chronic respiratory failure with hypoxia and hypercapnia Priority: Secondary Status: Chronic (8) Constipation by delayed colonic transit Priority: Secondary Status: Acute Hospital course: Ms. Danielle is a 77 year old female - Time Spent with Patient Total time spent providing and/or coordinating discharge services: 38min - Discharge Medications Prescriptions: Bumetanide [Bumex] 0.5 mg PO BID #30 tablet Home Medications: Tiotropium [Spiriva] 2 puff IH DAILY 02/15/15 [History] Aspirin [Adult Low Dose Aspirin EC] 81 mg PO 3XW 07/21/15 [History] Acetylcysteine [Nac] 600 mg PO BID 08/18/17 [History] Atorvastatin [Lipitor] 20 mg PO DAILY 08/18/17 [History] Ascorbic Acid [Vitamin C] 500 mg PO DAILY #30 tablet 08/27/17 [Rx] Ferrous Sulfate 325 mg PO DAILY #30 tablet 08/27/17 [Rx] Losartan Potassium [Cozaar] 50 mg PO DAILY #30 tab 08/27/17 [Rx] Budesonide/Formoterol 160/4.5 [Symbicort 160/4.5] 2 puff IH BIDR 10/27/17 [ History] Ondansetron ODT [Zofran ODT] 4 mg SL Q4H PRN tab.rapdis 11/01/17 [Rx] Digoxin [Lanoxin] 0.125 mg PO DAILY #30 tablet 11/08/17 [Rx] Metoprolol XL (24 HR) Succ [Toprol Xl] 25 mg PO DAILY #30 tab.er.24h 11/08/17 [ Rx] Acetaminophen [Tylenol Arthritis] 650 mg PO Q6H PRN 12/01/17 [History] Albuterol Sulfate [Ventolin Hfa] 2 puff IH Q4-6H PRN 12/01/17 [History] Buspirone HCl [Buspar] 5 mg PO BID 12/01/17 [History] Cetirizine HCl [Zyrtec] 10 mg PO DAILY 12/01/17 [History] Ipratropium [place] 2 spray NS BID 12/01/17 [History] Oxygen 1 each .ROUTE AD 12/01/17 [History] Albuterol Neb [Proventil Neb] 2.5 mg IH Q4-6H PRN 01/14/18 [History] Docusate [Colace] 100 mg PO BID PRN 01/14/18 [History] GuaiFENesin/Dextromethorphan [Robitussin/Dm] 10 ml PO Q6HR PRN 01/14/18 [History ] Mirtazapine [Remeron] 15 mg PO DAILY 01/14/18 [History] PredniSONE [Deltasone] 40 mg PO DAILY 01/14/18 [History] ALPRAZolam [Xanax 0.25 MG Tablet] 0.25 mg PO TID PRN 01/17/18 [History] Bumetanide [Bumex] 0.5 mg PO BID #30 tablet 01/19/18 [Rx] Allergies/Adverse Reactions: 3 Allergy/AdvReac Type Severity Reaction Status Date / Time codeine Allergy Rash Verified 12/23/17 14:41 levofloxacin [From Levaquin] Allergy Joint Pain Verified 12/23/17 14:41 Date of admission: 01/15/18 11:14 Primary care physician: Nahum Dukes MD Consults: 01/16/18 10:12 Consult to Physical Therapy [CONS] Routine Comment: Evaluate, develop and implement POC Reason for Consult: Difficulty ambulating Does patient have active BEDREST order?: No Is patient medically & hemodynamically stable?: Yes Patient assessed for mobility or mobilized this visit?: No Consult to Site Damage Prevention Technician [CONS] Routine Reason for SW Consult: Discharge planning - Constitutional Vitals: Temp Pulse Resp BP Pulse Ox 97.7 F 88 18 137/84 98 01/19/18 15:32 01/19/18 15:32 01/19/18 15:32 01/19/18 15:32 01/19/18 15:32 - Patient Status Disposition: Home, Self-Care Condition: Fair - Discharge Instructions Instructions: Bumetanide (By mouth), BiPAP (GEN) Follow Up With: Nahum Dukes MD [Primary Care Provider] - Additional Instructions: Continue home medications. Take bumex 0.5mg twice daily. Use 3L oxygen via nasal canula. Use BiPAP at night. Follow up with your PCP in 3-5 days. Follow up with your oncologist as scheduled. Return to the emergency department if you develop fevers, chills, worsening shortness of breath, or other concerns. - Attending Attestation I examined this patient and my medical decision-making was reviewed with the Resident Physician on 01/19/18. I agree with the documented findings, disposition and treatment plan as described except to the extent set forth below. Ms Danielle has been admitted for acute exac COPD. She has qualified for bipap. She has slowly improved and at this time is afebrile. She is ready for discharge home. Exam alert Comfortable up in chair Mucus membranes dry Heart distant Lungs diminished but no wheeze at this time Abd soft No edema Plan D/C home today Bipap at night arranged Further diagnoses and plan as above. <Yessenia Asencio N - Last Filed: 01/20/18 08:10> Orders not resulted at time of discharge: Pending orders 01/17/18 08:51 Culture,Urine [RM] Routine Date of Encounter: 01/20/18 Time of Encounter: 07:34 - Discharge Diagnosis (1) UTI (urinary tract infection) Priority: Secondary Status: Resolved Qualifiers: Urinary tract infection type: acute cystitis Hematuria presence: with hematuria Qualified Code(s): N30.01 - Acute cystitis with hematuria (2) Acute respiratory failure with hypoxia and hypercapnia Priority: Primary Status: Resolved (3) Non-small cell lung cancer Priority: Secondary Status: Chronic Qualifiers: Laterality: right Qualified Code(s): C34.91 - Malignant neoplasm of unspecified part of right bronchus or lung (4) Acute on chronic systolic (congestive) heart failure Priority: Secondary Status: Resolved (5) COPD (chronic obstructive pulmonary disease) Priority: Secondary Status: Chronic Qualifiers: COPD type: emphysema Emphysema type: panlobular Qualified Code(s): J43.1 - Panlobular emphysema Hospital course: Ms. Danielle is a 77-year old female with a history of COPD, CHF, and recently diagnosed lung cancer. She presented to outside ED yesterday for progressively worsening SOB to the point where she is experiencing conversational dyspnea. Per hospitalist H&P, she was evaluated by her PCP yesterday and prescribed prednisone, azithromycin, and doxycycline; however, she continued to worsen, resulting in her presentation to the ED. Imaging studies performed at the outside facility demonstrated pleural effusions and pulmonary edema. She was transferred to [place] due to concern for worsening respiratory status. During admission here, she has been receiving scheduled and PRN nebulizer treatments and BiPAP with some improvement in symptoms. Diuretic was increased to BID. Patient demonstrated progressive improvement in symptoms. Her son requested PT/OT evaluations and home BiPAP qualification. She was medically appropriate for discharge on 01/17; however, discharge was delayed to allow for BiPAP qualification study. She underwent initial BiPAP qualification study on 01/16-01/17; however, it was performed on 3L supplemental oxygen, rather than the 2L she was qualified for at the time. Due to her repeated hospitalizations for similar symptoms, patient was advised to stay and have BiPAP qualification redone, as it would improve her quality of life and lengthen her time at home between admissions. Patient was qualified for 3L supplemental oxygen on 01/18; however BiPAP qualification done on 01/18-01/19 was done on 2L supplemental oxygen. criminal justice social worker discussed her situation thoroughly with her home health agency, and was eventually able to get her set up for home BiPAP to be delivered in the evening on 01/19. Patient was discharged home with instructions to use her BiPAP during naps, at night, and PRN as directed. She was instructed to follow up with her PCP in 3-5 days regarding this hospitalization. She voiced understanding and was discharged home. Discharge discussed with: patient, family, nurse - Time Spent with Patient Total time spent providing and/or coordinating discharge services: Date of admission: 01/15/18 11:14 Primary care physician: Nahum Dukes MD Consults: 01/16/18 10:12 Consult to Physical Therapy [CONS] Routine Comment: Evaluate, develop and implement POC Reason for Consult: Difficulty ambulating Does patient have active BEDREST order?: No Is patient medically & hemodynamically stable?: Yes Patient assessed for mobility or mobilized this visit?: No Consult to Site Damage Prevention Technician [CONS] Routine Reason for SW Consult: Discharge planning Discharging clinician: Yessenia Asencio Anticipated date of discharge: 01/19/18 - Constitutional Vitals: Temp Pulse Resp BP Pulse Ox 98.1 F 84 18 125/72 97 01/18/18 04:52 01/18/18 04:52 01/18/18 07:23 01/18/18 04:52 01/18/18 07:23 General appearance: Present: cooperative, mild distress, A&O X 3 Exam: * General: Ill-appearing elderly female sitting in the chair by the bedside. She appears to be in no acute distress. She answers questions appropriately. * HEENT: Atraumatic and normocephalic. Nasal canula in place. * Cardiovascular: Regular rate and rhythm. S1 and S2 present. No murmurs, rubs, or gallops. * Respiratory: CTA bilaterally. Patient appears dyspneic, but is improved from yesterday. Pursed lips noted during respiration. * Abdomen: Soft and nontender. * Extremities: No clubbing, cyanosis, or edema present. - Patient Status Functional capacity at discharge: independent ambulation Overall status at discharge: patient is progressing back to baseline - Diet and Activity Activity: increase activity as tolerated, wear oxygen at all times, other (Wear BiPAP during naps and at night.) Diet: other (Cardiac and renal diet)
[2018-01-18] MEDS: *HR* Acetylcysteine 20% 600 MG/3 ML ORAL SYRINGE PO SCH ×2 (10:01→21:57)
[2018-01-18] MEDS: *HR* Digoxin 0.125 MG TABLET PO SCH (10:03)
[2018-01-18] MEDS: Nitrofurantoin (BID) 100 MG CAPSULE PO SCH ×2 (10:03→16:19)
[2018-01-18] MEDS: ALPRAZolam 0.5 MG TABLET PO PRN ×3 (10:03→21:56)
[2018-01-18] MEDS: Metoprolol XL (24 HR) Succ 25 MG TAB.ER.24H PO SCH (10:03)
[2018-01-18] MEDS: Ascorbic Acid 500 MG TABLET PO SCH (10:03)
[2018-01-18] MEDS: Bumetanide 1 MG TABLET PO SCH ×2 (10:03→16:18)
[2018-01-18] MEDS: Mirtazapine 15 MG TABLET PO SCH (10:03)
--- NOTE | 2018-01-18 14:34 | Internal Med Progress Note ---
<Yessenia Asencio N - Last Filed: 01/18/18 14:29> Hospitalist Progress Note - Encounter Date of Encounter: 01/18/18 Time of Encounter: 14:40 - Subjective Interval History: Ms. Danielle is a 77-year old female with a history of COPD, CHF, and recently diagnosed lung cancer. She presented to outside ED yesterday for progressively worsening SOB to the point where she is experiencing conversational dyspnea. Per hospitalist H&P, she was evaluated by her PCP yesterday and prescribed prednisone, azithromycin, and doxycycline; however, she continued to worsen, resulting in her presentation to the ED. Imaging studies performed at the outside facility demonstrated pleural effusions and pulmonary edema. She was transferred to [place] due to concern for worsening respiratory status. Since her admission here, she has been receiving scheduled and PRN nebulizer treatments and BiPAP with some improvement in symptoms. On exam today, she continues to have shortness of breath, though she does report some improvement. She denies any chest pain or cough. Nursing staff denies any significant overnight events. She denies any new complaints or concerns at this time. 01/16 - Patient states that she feels she is breathing more easily today. She states that she feels the BiPAP is helping, though she does not like the way it feels. Her son, who is present at the bedside, requests an incentive spirometer , stating that the patient uses one at home. He inquires about PT/OT services, and states that he would like to have her set up for home BiPAP, as it seems to help her breathing. She denies any new complaints or concerns at this time, and nursing staff reports no acute overnight events. 01/17 - Patient appears slightly dyspneic on exam today. She reports that she was recently evaluated by PT/OT, which led to her SOB. She reportedly qualified for home BiPAP with her overnight study. She reports urinary frequency and urgency that began last night. She states that she feels like she has a UTI. She reports no other complains or concerns at this time. 01/18 - Ms. Danielle appears improved today and states that she would like to go home. Per her manager case, the BiPAP qualification study done yesterday is not valid for her insurance to pay for home BiPAP, as it was done with the wrong amount of supplemental oxygen. Patient expresses frustration about this, but acknowledges the need to delay her discharge in order to set up home BiPAP. She denies any acute complaints or concerns today, and nursing staff reports no significant overnight events. - Exam Vitals: Temp Pulse Resp BP Pulse Ox 98 F 109 18 148/93 96 01/18/18 12:26 01/18/18 12:26 01/18/18 12:26 01/18/18 12:26 01/18/18 12:26 Exam: * General: Ill-appearing elderly female. She appears to be in no acute distress. She answers questions appropriately. * HEENT: Atraumatic and normocephalic. Nasal canula in place. * Cardiovascular: Regular rate and rhythm. S1 and S2 present. * Respiratory: CTA bilaterally. Patient appears dyspneic, but is improved from yesterday. Accessory muscle use and pursed lips noted during respiration. * Abdomen: Soft and nontender. * Extremities: No clubbing or cyanosis. Minimal bilateral LE edema present. - Assessment and Plan (1) Acute respiratory failure with hypoxia and hypercapnia Current Visit: Yes Status: Acute Assessment and Plan: Patient presented with worsening SOB x 3days. She uses 5L supplemental oxygen at home, with an increased requirement of 8L when walking. She is currently receiving scheduled and PRN nebulizer treatments, with minimal improvement in symptoms. She appear short of breath very quickly after starting to converse. Plan to continue IV lasix and close record of I/Os and daily weights. Initial imaging demonstrated pleural effusions and pulmonary edema - will consider thoracentesis if patient does not improve or if effusion worsens. 01/16 - Patient reports symptomatic improvement in respiratory status, though she is slightly dyspneic while speaking. She reports that BiPAP helped her breathing, and is interested in having one at home. ABG performed this afternoon showed pH 7.39, pCO2 72, pO2 66, and HCO3 43. Plan for BiPAP qualification study tonight. Will continue with lasix and nebulizer treatments as planned. 01/17 - Patient underwent BiPAP qualification study yesterday. We will set up for home BiPAP therapy. Her respiratory status is improving. Will continue bumex 0.5mg BID and nebulizer treatments. 01/18 - territory sales manager reported that patient's BiPAP qualification study would need to be repeated, as she was on 3L oxygen for that test but is prescribed 2L at home; therefore, patient will need new 6-minute walk test to determine oxygen needs and repeat BiPAP qualification study. She is very high-risk for readmission without access to BiPAP at home; therefore, plan to keep her overnight to accomplish these tasks so she can be discharged with BiPAP at home. Patient is unhappy about additional night in the hospital; however, she has agreed to stay as the benefits are substantial. Plan for discharge tomorrow morning. (2) Non-small cell lung cancer Current Visit: Yes Status: Acute Assessment and Plan: Patient was recently diagnosed with NSCLC, and was scheduled to undergo her first radiation treatment yesterday. Will recommend prompt followup with oncologist after discharge. 01/16 - Patient reports that she is supposed to undergo radiation therapy tomorrow and requests that we reach out the her oncologist regarding her current hospitalization. Plan to call their office tomorrow per her request. 01/17 - [facility] notify [facility] of need to reschedule radiation treatment. Patient instructed to follow-up with oncology after discharge for further management of this problem. 01/18 - Patient was originally scheduled for radiation M/W/F. She is planned for discharge tomorrow. Nursing staff will notify the cancer center that she will be able to keep her appointment Wednesday; however, it would be better if she rescheduled the appointment for tomorrow to allow her time to further improve. (3) Acute on chronic systolic (congestive) heart failure Current Visit: Yes Status: Acute Assessment and Plan: Patient has a history of CHF and takes bumex at home. She is currently on furosemide 20mg IVP BID. Rodriguez catheter is in place. Plan for strict I/Os and daily weights. Will consider fluid restriction diet if patient does not demonstrate improvement overnight. 01/16 - Patient I/O for yesterday were 400/2900 (-2500mL). Clinically, the patient appears to be improving. Will continue lasix diuresis and strict I/Os. 01/17 - 24-hour I/O = 540/1500. Will continue diuresis. Patient is improved clinically and respirations appear to be more comfortable. Plan for likely discharge tomorrow. 01/18 - Discharge delayed due to need for repeat BiPAP qualification study. Patient is tolerating increased dose of bumex well. Plan to discharge her home on bumex 0.5mg BID. 24-hour I/O = 660/1800mL. Will continue to monitor. (4) UTI (urinary tract infection) Current Visit: Yes Status: Acute Assessment and Plan: Patient complains of urinary frequency and urgency that began last night. Urinarlysis was significatn for proteinuria, large blood, large leukocyte esterdase, and WBC TNTC. Urine culture is pending. Plan for macrobid 100mg BID x3 days. Day #2 of macrobid 100mg BID. Will continue as planned for total 3 day course. DVT Prophylaxis: Heparin 5000units SQ Q8H. - Time Spent with Patient Total time spent is greater than 50% in coordination of care (as documented) at patient's floor/unit and/or counseling patient: Internal Medicine: Result - Labs CBC & Chem 7: 01/18/18 04:12 01/18/18 04:12 Labs: Short CBC 01/18/18 Range/Units 04:12 WBC 8.7 (4.3-11.1) K/mcL Hgb 12.2 (11.5-15.4) g/dL Hct 41.4 (35.3-44.9) % Plt Count 252 (140-400) K/mcL Neutrophils # 5.8 (1.6-8.9) K/mcL BMP 01/18/18 04:12 Sodium 141 Potassium 4.0 Chloride 98 Carbon Dioxide 37 H BUN 14 Creatinine 0.63 Glucose 99 Calcium 9.0 - ABG Interpretation ABG results: ABG ABG pH 7.39 pH Units (7.32-7.45) 01/16/18 11:46 ABG pCO2 72 mmHg (35-45) H* 01/16/18 11:46 ABG pO2 66 mmHg (85-104) L 01/16/18 11:46 ABG O2 Saturation 91 % (95-98) L 01/16/18 11:46 Consult Discharge Plan - Plan Referrals: Nahum Dukes MD [Primary Care Provider] - <Geovani Lyles - Last Filed: 01/18/18 17:28> Hospitalist Progress Note - Encounter Date of Encounter: 01/18/18 - Exam Vitals: Temp Pulse Resp BP Pulse Ox 98.3 F 79 16 138/87 95 01/18/18 16:47 01/18/18 16:47 01/18/18 16:47 01/18/18 16:47 01/18/18 16:47 - Assessment and Plan (1) Non-small cell lung cancer Current Visit: Yes Status: Acute (2) Acute respiratory failure with hypoxia and hypercapnia Current Visit: Yes Status: Acute (3) Acute on chronic systolic (congestive) heart failure Current Visit: Yes Status: Acute (4) UTI (urinary tract infection) Current Visit: Yes Status: Acute (5) Hypertension Current Visit: No Status: Chronic (6) COPD (chronic obstructive pulmonary disease) Current Visit: Yes Status: Chronic - Time Spent with Patient Total time spent is greater than 50% in coordination of care (as documented) at patient's floor/unit and/or counseling patient: Internal Medicine: Result - Labs CBC & Chem 7: 01/18/18 04:12 01/18/18 04:12 Labs: Short CBC 01/18/18 Range/Units 04:12 WBC 8.7 (4.3-11.1) K/mcL Hgb 12.2 (11.5-15.4) g/dL Hct 41.4 (35.3-44.9) % Plt Count 252 (140-400) K/mcL Neutrophils # 5.8 (1.6-8.9) K/mcL BMP 01/18/18 04:12 Sodium 141 Potassium 4.0 Chloride 98 Carbon Dioxide 37 H BUN 14 Creatinine 0.63 Glucose 99 Calcium 9.0 - ABG Interpretation ABG results: ABG ABG pH 7.39 pH Units (7.32-7.45) 01/16/18 11:46 ABG pCO2 72 mmHg (35-45) H* 01/16/18 11:46 ABG pO2 66 mmHg (85-104) L 01/16/18 11:46 ABG O2 Saturation 91 % (95-98) L 01/16/18 11:46 - Attending Attestation I examined this patient and my medical decision-making was reviewed with the Resident Physician on 01/18/18. I agree with the documented findings, disposition and treatment plan as described except to the extent set forth below. Ms Danielle is currently admitted for acute respiratory failure. She remains moderate to high risk due to potential for worsening clinical status. Ms Danielle is frustrated about bipap study. She denies CP. Dyspnea about at baseline. No fever or chills. Some cough. Poor appetite today. Exam alert Comfortable up in chair. Slightly tachypneic Mucus membranes dry Heart distant Lungs diminished. No wheeze today Abd soft No edema I/P 1. Resp failure 2. COPD 3. Lung cancer Bipap study to be repeated tonight D/C planned for tomorrow. <Yessenia Asencio N - Last Filed: 01/18/18 14:29> (2) Non-small cell lung cancer Qualifiers: Laterality: right Qualified Code(s): C34.91 - Malignant neoplasm of unspecified part of right bronchus or lung <Geovani Lyles A - Last Filed: 01/18/18 17:28> (1) Non-small cell lung cancer Qualifiers: Laterality: right Qualified Code(s): C34.91 - Malignant neoplasm of unspecified part of right bronchus or lung (4) UTI (urinary tract infection) Qualifiers: Urinary tract infection type: acute cystitis Hematuria presence: with hematuria Qualified Code(s): N30.01 - Acute cystitis with hematuria (5) Hypertension Qualifiers: Hypertension type: essential hypertension Qualified Code(s): I10 - Essential (primary) hypertension (6) COPD (chronic obstructive pulmonary disease) Qualifiers: COPD type: emphysema Emphysema type: panlobular Qualified Code(s): J43.1 - Panlobular emphysema
[2018-01-18] MEDS: Nicotine 14 MG PATCH.TD24 TD SCH (21:56)
[2018-01-19] MEDS: *HR* Heparin 5,000 UNIT/ML VIAL SQ SCH ×2 (06:42→15:18)
[2018-01-19 07:16] LABS: Basophils % 0.4 %; Eosinophils # 0.3 K/mcL (0.0-0.6); Eosinophils % 2.8 %; Hematocrit 44.3 % (35.3-44.9); Immature Granulocytes % 0.2 % (0-4); Lymphocytes # 1.7 K/mcL (0.6-4.6); Lymphocytes % 18.1 %; Mean Corpuscular HGB Conc 29.3 g/dL (31.6-35.5); Mean Corpuscular Hemoglobin 26.6 pg (28.0-33.3); Mean Corpuscular Volume 90.6 fL (83.0-100.0); Mean Platelet Volume 11.3 fL (9.4-12.4); Monocytes # 0.9 K/mcL (0.0-1.3); Monocytes % 9.2 %; Neutrophils # 6.5 K/mcL (1.6-8.9); Platelet Count 251 K/mcL (140-400); Red Blood Count 4.89 M/mcL (3.82-4.97); Red Cell Distribution Width 14.6 % (11.5-14.5); Segmented Neutrophils % 69.3 %
[2018-01-19] MEDS: Budesonide/Formoterol 160/4.5 1 PUFF INH IH SCH (07:34)
[2018-01-19] MEDS: Albuterol 2.5 MG/3 ML NEBULIZER IH PRN ×3 (07:35→16:01)
[2018-01-19 07:41] LABS: BUN/Creatinine Ratio 19 (6-26); Blood Urea Nitrogen 12 mg/dL (8-23); Calcium 9.9 mg/dL (8.6-10.3); Carbon Dioxide 40 mEq/L (23-29); Chloride 96 mEq/L (98-107); Glucose 95 mg/dL (70-105); Osmolality,Calculated 294 (280-300); Potassium 4.3 mEq/L (3.5-5.1); Sodium 142 mEq/L (136-145); eGFR For Non-African Americans > 60 (> 60)
[2018-01-19] MEDS: Nitrofurantoin (BID) 100 MG CAPSULE PO SCH (08:32)
[2018-01-19] MEDS: Mirtazapine 15 MG TABLET PO SCH (08:32)
[2018-01-19] MEDS: Ascorbic Acid 500 MG TABLET PO SCH (08:32)
[2018-01-19] MEDS: Bumetanide 1 MG TABLET PO SCH (08:32)
[2018-01-19] MEDS: ALPRAZolam 0.5 MG TABLET PO PRN ×2 (08:32→15:19)
[2018-01-19] MEDS: Metoprolol XL (24 HR) Succ 25 MG TAB.ER.24H PO SCH (08:32)
[2018-01-19] MEDS: Aspirin Enteric Coated 81 MG Tablet PO SCH (08:33)
[2018-01-19] MEDS: *HR* Digoxin 0.125 MG TABLET PO SCH (08:33)
[2018-01-19] MEDS: *HR* Acetylcysteine 20% 600 MG/3 ML ORAL SYRINGE PO SCH (08:33)
[2018-01-19] MEDS ORDERED: Tiotropium 18 MCG inhalation IH SCH (10:00)
--- NOTE | 2018-01-19 11:33 | Internal Med Progress Note ---
Addendum entered and electronically signed by Yessenia Asencio 01/19/18 16:02 : CPAP treatment has been considered for this patient; however, it has been ruled out because it is not an effective treatment for this patient's COPD. She needs BIPAP treatment for her COPD. Original Note: <Yessenia Asencio - Last Filed: 01/19/18 14:33> Hospitalist Progress Note - Encounter Date of Encounter: 01/19/18 Time of Encounter: 10:00 - Subjective Interval History: Ms. Danielle is a 77-year old female with a history of COPD, CHF, and recently diagnosed lung cancer. She presented to outside ED yesterday for progressively worsening SOB to the point where she is experiencing conversational dyspnea. Per hospitalist H&P, she was evaluated by her PCP yesterday and prescribed prednisone, azithromycin, and doxycycline; however, she continued to worsen, resulting in her presentation to the ED. Imaging studies performed at the outside facility demonstrated pleural effusions and pulmonary edema. She was transferred to [place] due to concern for worsening respiratory status. Since her admission here, she has been receiving scheduled and PRN nebulizer treatments and BiPAP with some improvement in symptoms. On exam today, she continues to have shortness of breath, though she does report some improvement. She denies any chest pain or cough. Nursing staff denies any significant overnight events. She denies any new complaints or concerns at this time. 01/16 - Patient states that she feels she is breathing more easily today. She states that she feels the BiPAP is helping, though she does not like the way it feels. Her son, who is present at the bedside, requests an incentive spirometer , stating that the patient uses one at home. He inquires about PT/OT services, and states that he would like to have her set up for home BiPAP, as it seems to help her breathing. She denies any new complaints or concerns at this time, and nursing staff reports no acute overnight events. 01/17 - Patient appears slightly dyspneic on exam today. She reports that she was recently evaluated by PT/OT, which led to her SOB. She reportedly qualified for home BiPAP with her overnight study. She reports urinary frequency and urgency that began last night. She states that she feels like she has a UTI. She reports no other complains or concerns at this time. 01/18 - Ms. Danielle appears improved today and states that she would like to go home. Per her director case, the BiPAP qualification study done yesterday is not valid for her insurance to pay for home BiPAP, as it was done with the wrong amount of supplemental oxygen. Patient expresses frustration about this, but acknowledges the need to delay her discharge in order to set up home BiPAP. She denies any acute complaints or concerns today, and nursing staff reports no significant overnight events. 01/19 - Ms. Danielle underwent BiPAP qualification study last night; however, it was again performed incorrectly for the amount of oxygen she is prescribed. She underwent 6-minute walk test yesterday and qualified for 3L supplemental oxygen ; however, BiPAP study performed last night was done on 2L. Patient is understandably frustrated by this, but is willing to stay to have the test repeated for the 3rd time tonight as long as she can get up and walk today. Patient denies any other complaints or concerns at this time. - Exam Vitals: Temp Pulse Resp BP Pulse Ox 97.7 F 83 17 118/78 98 01/19/18 11:13 01/19/18 11:13 01/19/18 11:13 01/19/18 11:13 01/19/18 11:13 Exam: * General: Ill-appearing elderly female sitting in the chair by the bedside. She appears to be in no acute distress. She answers questions appropriately. * HEENT: Atraumatic and normocephalic. Nasal canula in place. * Cardiovascular: Regular rate and rhythm. S1 and S2 present. No murmurs, rubs, or gallops. * Respiratory: CTA bilaterally. Patient appears dyspneic, but is improved from yesterday. Pursed lips noted during respiration. * Abdomen: Soft and nontender. * Extremities: No clubbing, cyanosis, or edema present. - Assessment and Plan (1) Acute respiratory failure with hypoxia and hypercapnia Current Visit: Yes Status: Acute Assessment and Plan: Patient presented with worsening SOB x 3days. She uses 5L supplemental oxygen at home, with an increased requirement of 8L when walking. She is currently receiving scheduled and PRN nebulizer treatments, with minimal improvement in symptoms. She appear short of breath very quickly after starting to converse. Plan to continue IV lasix and close record of I/Os and daily weights. Initial imaging demonstrated pleural effusions and pulmonary edema - will consider thoracentesis if patient does not improve or if effusion worsens. 01/16 - Patient reports symptomatic improvement in respiratory status, though she is slightly dyspneic while speaking. She reports that BiPAP helped her breathing, and is interested in having one at home. ABG performed this afternoon showed pH 7.39, pCO2 72, pO2 66, and HCO3 43. Plan for BiPAP qualification study tonight. Will continue with lasix and nebulizer treatments as planned. 01/17 - Patient underwent BiPAP qualification study yesterday. We will set up for home BiPAP therapy. Her respiratory status is improving. Will continue bumex 0.5mg BID and nebulizer treatments. 01/18 - carbon sequestration plant manager reported that patient's BiPAP qualification study would need to be repeated, as she was on 3L oxygen for that test but is prescribed 2L at home; therefore, patient will need new 6-minute walk test to determine oxygen needs and repeat BiPAP qualification study. She is very high-risk for readmission without access to BiPAP at home; therefore, plan to keep her overnight to accomplish these tasks so she can be discharged with BiPAP at home. Patient is unhappy about additional night in the hospital; however, she has agreed to stay as the benefits are substantial. Plan for discharge tomorrow morning. 01/19 - Patient underwent 6-minute walk test yesterday, which qualified her for 3L continuous oxygen; however, when her BiPAP qualification study was performed last night, she was put on 2L oxygen, invalidating the results. Patient is understandably frustrated. Discussed the possibility of discharging her today and outpatient followup for sleep study; however, patient states that she does not want to do this. She is hesitantly agreeable to staying tonight to again have the BiPAP qualification study performed; however, she states that she would like to ambulate and does not want to use the bedside commode as it is uncomfortable for her. Spoke with nursing staff and they are amicable to her requests. Plan to again repeat BiPAP qualification study on 3L supplemental oxygen. Will discharge home tomorrow with BiPAP equipment. (2) Acute on chronic systolic (congestive) heart failure Current Visit: Yes Status: Acute Assessment and Plan: Patient has a history of CHF and takes bumex at home. She is currently on furosemide 20mg IVP BID. Rodriguez catheter is in place. Plan for strict I/Os and daily weights. Will consider fluid restriction diet if patient does not demonstrate improvement overnight. 01/16 - Patient I/O for yesterday were 400/2900 (-2500mL). Clinically, the patient appears to be improving. Will continue lasix diuresis and strict I/Os. 01/17 - 24-hour I/O = 540/1500. Will continue diuresis. Patient is improved clinically and respirations appear to be more comfortable. Plan for likely discharge tomorrow. 01/18 - Discharge delayed due to need for repeat BiPAP qualification study. Patient is tolerating increased dose of bumex well. Plan to discharge her home on bumex 0.5mg BID. 24-hour I/O = 660/1800mL. Will continue to monitor. 01/19 -Discharge again delayed due to need for repeat BiPAP qualification study. Per patient's request, fluid restriction increased from 1.5 to 2L. Will continue bumex 0.5mL BID. Plan to discharge home tomorrow. (3) UTI (urinary tract infection) Current Visit: Yes Status: Acute Assessment and Plan: Patient complains of urinary frequency and urgency that began last night. Urinarlysis was significatn for proteinuria, large blood, large leukocyte esterdase, and WBC TNTC. Urine culture is pending. Plan for macrobid 100mg BID x3 days. 01/18 - Day #2 of macrobid 100mg BID. Will continue as planned for total 3 day course. 01/19 - Day #3 of antibiotic therapy. Will d/c antibiotic after evening dose and reassess tomorrow for any continued urinary symptoms. (4) Non-small cell lung cancer Current Visit: Yes Status: Acute Assessment and Plan: Patient was recently diagnosed with NSCLC. She is scheduled to undergo initial radiation treatment this Wednesday. DVT Prophylaxis: Heparin 5000units SQ Q8H. - Time Spent with Patient Total time spent is greater than 50% in coordination of care (as documented) at patient's floor/unit and/or counseling patient: Internal Medicine: Result - Labs CBC & Chem 7: 01/19/18 06:55 01/19/18 06:55 Labs: Short CBC 01/19/18 Range/Units 06:55 WBC 9.4 (4.3-11.1) K/mcL Hgb 13.0 (11.5-15.4) g/dL Hct 44.3 (35.3-44.9) % Plt Count 251 (140-400) K/mcL Neutrophils # 6.5 (1.6-8.9) K/mcL BMP 01/19/18 06:55 Sodium 142 Potassium 4.3 Chloride 96 L Carbon Dioxide 40 H* BUN 12 Creatinine 0.63 Glucose 95 Calcium 9.9 - ABG Interpretation ABG results: ABG ABG pH 7.39 pH Units (7.32-7.45) 01/16/18 11:46 ABG pCO2 72 mmHg (35-45) H* 01/16/18 11:46 ABG pO2 66 mmHg (85-104) L 01/16/18 11:46 ABG O2 Saturation 91 % (95-98) L 01/16/18 11:46 Consult Discharge Plan - Plan Referrals: Nahum Dukes MD [Primary Care Provider] - <Geovani Lyles - Last Filed: 01/19/18 17:06> Hospitalist Progress Note - Encounter Date of Encounter: 01/19/18 - Exam Vitals: Temp Pulse Resp BP Pulse Ox 97.7 F 88 18 137/84 98 01/19/18 15:32 01/19/18 15:32 01/19/18 15:32 01/19/18 15:32 01/19/18 15:32 - Assessment and Plan (1) Acute exacerbation of chronic obstructive airways disease Current Visit: No Status: Resolved (2) Non-small cell lung cancer Current Visit: Yes Status: Chronic (3) Acute respiratory failure with hypoxia and hypercapnia Current Visit: Yes Status: Resolved (4) Acute on chronic systolic (congestive) heart failure Current Visit: Yes Status: Resolved (5) UTI (urinary tract infection) Current Visit: Yes Status: Resolved (6) Hypertension Current Visit: No Status: Chronic (7) Chronic respiratory failure with hypoxia and hypercapnia Current Visit: Yes Status: Chronic (8) Constipation by delayed colonic transit Current Visit: Yes Status: Acute - Time Spent with Patient Total time spent is greater than 50% in coordination of care (as documented) at patient's floor/unit and/or counseling patient: Internal Medicine: Result - Labs CBC & Chem 7: 01/19/18 06:55 01/19/18 06:55 Labs: Short CBC 01/19/18 Range/Units 06:55 WBC 9.4 (4.3-11.1) K/mcL Hgb 13.0 (11.5-15.4) g/dL Hct 44.3 (35.3-44.9) % Plt Count 251 (140-400) K/mcL Neutrophils # 6.5 (1.6-8.9) K/mcL BMP 01/19/18 06:55 Sodium 142 Potassium 4.3 Chloride 96 L Carbon Dioxide 40 H* BUN 12 Creatinine 0.63 Glucose 95 Calcium 9.9 - ABG Interpretation ABG results: ABG ABG pH 7.39 pH Units (7.32-7.45) 01/16/18 11:46 ABG pCO2 72 mmHg (35-45) H* 01/16/18 11:46 ABG pO2 66 mmHg (85-104) L 01/16/18 11:46 ABG O2 Saturation 91 % (95-98) L 01/16/18 11:46 - Attending Attestation Please see discharge summary of this date. <Yessenia Asencio - Last Filed: 01/19/18 14:33> (3) UTI (urinary tract infection) Qualifiers: Urinary tract infection type: acute cystitis Hematuria presence: with hematuria Qualified Code(s): N30.01 - Acute cystitis with hematuria (4) Non-small cell lung cancer Qualifiers: Laterality: right Qualified Code(s): C34.91 - Malignant neoplasm of unspecified part of right bronchus or lung <Geovani Lyles A - Last Filed: 01/19/18 17:06> (2) Non-small cell lung cancer Qualifiers: Laterality: right Qualified Code(s): C34.91 - Malignant neoplasm of unspecified part of right bronchus or lung (5) UTI (urinary tract infection) Qualifiers: Urinary tract infection type: acute cystitis Hematuria presence: with hematuria Qualified Code(s): N30.01 - Acute cystitis with hematuria (6) Hypertension Qualifiers: Hypertension type: essential hypertension Qualified Code(s): I10 - Essential (primary) hypertension
[2018-01-19 15:34] VITALS: BP 137/84
--- NOTE | 2018-01-19 17:15 | Physician Discharge Referral ---
Home Health/Hosp Referral Info Transfer to: Home Health Attending Provider: Dr. Geovani Lyles Provider in Charge Post Discharge: PCP - Diagnosis (1) UTI (urinary tract infection) Priority: Secondary Status: Resolved (2) Acute respiratory failure with hypoxia and hypercapnia Priority: Primary Status: Resolved (3) Non-small cell lung cancer Priority: Secondary Status: Chronic (4) Acute on chronic systolic (congestive) heart failure Priority: Secondary Status: Resolved (5) COPD (chronic obstructive pulmonary disease) Priority: Secondary Status: Chronic - Respiratory Orders Oxygen / L per min (3L continuous flow), Other (BiPAP during naps and at night) Smoking Cessation: Smoking cessation has been advised. For more information, call the [employer] Quit Line at 5-525-OTWJ-NOW. - Diet/Nutrition Diet/Nutrition Orders: Renal, Cardiac - Activity Activity Orders: Ambulate - Services Needed Following services are medically necessary services: Nursing, Home Health Aide, Physical Therapy, Occupational Therapy - Transfer Medications Prescriptions: Bumetanide [Bumex] 0.5 mg PO BID #30 tablet Home Medications: Tiotropium [Spiriva] 2 puff IH DAILY 02/15/15 [History] Aspirin [Adult Low Dose Aspirin EC] 81 mg PO 3XW 07/21/15 [History] Acetylcysteine [Nac] 600 mg PO BID 08/18/17 [History] Atorvastatin [Lipitor] 20 mg PO DAILY 08/18/17 [History] Ascorbic Acid [Vitamin C] 500 mg PO DAILY #30 tablet 08/27/17 [Rx] Ferrous Sulfate 325 mg PO DAILY #30 tablet 08/27/17 [Rx] Losartan Potassium [Cozaar] 50 mg PO DAILY #30 tab 08/27/17 [Rx] Budesonide/Formoterol 160/4.5 [Symbicort 160/4.5] 2 puff IH BIDR 10/27/17 [ History] Ondansetron ODT [Zofran ODT] 4 mg SL Q4H PRN tab.rapdis 11/01/17 [Rx] Digoxin [Lanoxin] 0.125 mg PO DAILY #30 tablet 11/08/17 [Rx] Metoprolol XL (24 HR) Succ [Toprol Xl] 25 mg PO DAILY #30 tab.er.24h 11/08/17 [ Rx] Acetaminophen [Tylenol Arthritis] 650 mg PO Q6H PRN 12/01/17 [History] Albuterol Sulfate [Ventolin Hfa] 2 puff IH Q4-6H PRN 12/01/17 [History] Buspirone HCl [Buspar] 5 mg PO BID 12/01/17 [History] Cetirizine HCl [Zyrtec] 10 mg PO DAILY 12/01/17 [History] Ipratropium [place] 2 spray NS BID 12/01/17 [History] Oxygen 1 each .ROUTE AD 12/01/17 [History] Albuterol Neb [Proventil Neb] 2.5 mg IH Q4-6H PRN 01/14/18 [History] Docusate [Colace] 100 mg PO BID PRN 01/14/18 [History] GuaiFENesin/Dextromethorphan [Robitussin/Dm] 10 ml PO Q6HR PRN 01/14/18 [History ] Mirtazapine [Remeron] 15 mg PO DAILY 01/14/18 [History] PredniSONE [Deltasone] 40 mg PO DAILY 01/14/18 [History] ALPRAZolam [Xanax 0.25 MG Tablet] 0.25 mg PO TID PRN 01/17/18 [History] Bumetanide [Bumex] 0.5 mg PO BID #30 tablet 01/19/18 [Rx] Allergies/Adverse Reactions: 3 Allergy/AdvReac Type Severity Reaction Status Date / Time codeine Allergy Rash Verified 12/23/17 14:41 levofloxacin [From Levaquin] Allergy Joint Pain Verified 12/23/17 14:41 Certification: Further, I certify that my clinical findings support that this patient is homebound (i.e. absences from home require considerable and taxing effort and are for medical reasons or mu-ism services or infrequently or short duration when for other reasons) because: Homebound Reason: Leaving home requires considerable and taxing effort due to condition Attestation: My signature below is to certify that this patient is under my care and that I, or nurse practitioner, or a physician's lpn medical assistant working with me, has a face-to -face encounter with this patient.
== END 2018-01-19 17:48 | disposition home or self-care (01) | DRG 189 ==
LOC: 2ANU → SUATTDRO 19:40
PROVIDERS: ADMIT Internal Medicine; ATTEND Internal Medicine